=== PATIENT | female | born 1945 | race Caucasian/White ===

== ENCOUNTER → 2021-09-10 | Outpatient (CLI) | payer MEDICARE, OTHER ==
[~2021-09-10] MED LIST: CATHETER FLUSH 10 ML SYR IV PRN; HOLD METFORMIN - RECEIVED CONTRAST 20 ML VIAL IV SCH; IOHEXOL 350 MG/ML 100 ML (OMNIPAQUE 350) VIAL IV ONE; NS 100 ML (IVPB) BAG IV ONE
[2021-09-10 10:24] LABS: CREATININE SERUM 0.73 MG/DL (0.60-1.30); POTASSIUM 3.9 MMOL/L (3.6-5.0)
--- NOTE | 2021-09-10 12:25 | Diagnostic Imaging Report ---
PROCEDURE: CT chest, abdomen, and pelvis with contrast. TECHNIQUE: Multiple contiguous axial images were obtained through the chest, abdomen, and pelvis after the administration of intravenous contrast. Auto Exposure Controls were utilized during the CT exam to meet ALARA standards for radiation dose reduction. INDICATION: Back pain, history of renal malignancy as well as basal cell skin cancer. COMPARISON: I have no relevant comparison. FINDINGS: Post IV contrast-enhanced CT chest, abdomen, and pelvis is performed. CHEST: No lung mass or suspicious pulmonary nodule. No findings of thoracic involvement by primary or secondary malignancy. There is no axillary, hilar, or mediastinal lymphadenopathy. There are a few benign calcified subcentimeter pulmonary granulomata. No evidence for pneumonia, edema, effusion, pneumothorax, or chest wall abnormality. ABDOMEN AND PELVIS: Single dynamic phase [id number] imaging shows a complex cystic mass in the right kidney with a predominant exophytic component directed medially. It has multiple internal septations. The septa themselves are elevated in their density. It is unclear if these are intrinsically hyperdense septa or if this reflects septal enhancement and a cystic neoplasm. The latter is felt more likely. Given the history, this is a presumed known lesion, and correlation with priors would be useful to assess its stability. In aggregate, the lesion measures a maximal dimension in the transverse plane of 4.7 cm x 4.5 cm, and in the reconstruction views, its cephalocaudal extent is 3.6 cm. The renal veins are patent. The cava is patent. The adrenals are negative. There are a few left-sided renal parapelvic cysts showing no complexity or suspicious feature. There is no perinephric or periaortic lymphadenopathy. No mesenteric mass. No suspect liver lesion. Minute cyst in the right hepatic lobe noted. The spleen and pancreas are normal. There is no bile duct dilatation. The aorta is patent, nonaneurysmal, and nonacute. The uterus is absent. There is no adnexal lesion. There is diverticulosis of the sigmoid colon, but no features of active or acute diverticulitis. There is no pelvic lymphadenopathy. There is a tiny fatty umbilical hernia. This patient has no suspicious lytic or sclerotic bone lesion. IMPRESSION: 1. 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 No discrete nodular enhancing soft tissue component, but septal enhancement suspected. No findings of regional or distant metastatic disease. 2. Contralateral left kidney with some benign parapelvic cysts, otherwise negative. 3. The chest was unremarkable and nonacute. 4. There is noninflamed sigmoid diverticulosis and apparent previous hysterectomy with a fatty umbilical hernia, noninflamed and nonacute. Dictated by: Dictated on workstation # [id number]
== END ==
LOC: RAD 10:45
PROVIDERS: ATTEND Family Medicine
DX: N28.1 Cyst of kidney, acquired (principal); K57.30 Diverticulosis of large intestine without perforation or abscess without bleeding; K42.9 Umbilical hernia without obstruction or gangrene; Z90.710 Acquired absence of both cervix and uterus; Z85.528 Personal history of other malignant neoplasm of kidney; Z85.828 Personal history of other malignant neoplasm of skin
CPT/HCPCS: 36415; 71260; 74177; 80048